=== PATIENT | female | born 1970 | race Caucasian/White ===

== ENCOUNTER 2024-01-06 19:01 | Emergency (ER) | payer OTHER ==
--- OUTSIDE RECORDS SUMMARY | 2024-01-06 19:03 | XMS REPORT | Continuity of Care Document ---
Author Name Unknown Address [address] [facility] 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 Name Role Phone [email or web address] Attending Clinician Flavia CHANG, DR MUHAMMAD Attending Clinician Unavailable [email or web address] Admitting Clinician Flavia CHANG, DR MUHAMMAD Admitting Clinician Unavailable Payers Payer Name Policy Type Policy Number Effective Date Expirati on Date Source [facility]-[employer] - S\T\S HEALTHCARE STRATEGIES - CIGNA (PPO) [id number] Problems Condition Name Condition Details Condition Category Status Onset Date Resolution Date Last Treatment Date Treating Clinician Comments Source Menopausal symptom Menopausal Symptom Problem Active 08-23 00:00: 00 [facility] Depressive disorder Depressive Disorder Problem Active 15 00:00: 00 [facility] Atrophic vaginitis Atrophic Vaginitis Problem Active 4-11 00:00: 00 [facility] Screening mammograph y Screening Mammograph y Problem Active 4-07 00:00: 00 [facility] Moderate major depression , single episode Moderate Major Depression , Single Episode Problem Active 4-03 00:00: 00 [facility] Genuine stress incontinen ce Genuine Stress Incontinen ce Problem Active 2-04 00:00: 00 [facility] Inconclusi ve mammograph y finding Inconclusi ve Mammograph y Finding Problem Active 4- 00:00: 00 [facility] Abnormal findings on diagnostic imaging of breast Abnormal Findings on Diagnostic Imaging of Breast Problem Active 4- 00:00: 00 [facility] Anxiety disorder Anxiety Disorder Problem Active 8- 00:00: 00 [facility] History of dysplasia of cervix History of Dysplasia of Cervix Problem Active 12-24 00:00: 00 [facility] Gynecologi sen examinatio n abnormal Gynecologi sen Examinatio n Abnormal Problem Active 12-24 00:00: 00 [facility] Intramural leiomyoma of uterus Intramural Leiomyoma of Uterus Problem Active 01-10 00:00: 00 [facility] Contracept ion care education Contracept ion Care Education Problem Active 12-31 00:00: 00 [facility] Pelvic and perineal pain Pelvic and Perineal Pain Problem Active 12-30 00:00: 00 [facility] Excessive and frequent menstruati on Excessive and Frequent Menstruati on Problem Active 11-26 00:00: 00 [facility] Menopause present Menopause Present Problem Active 11-26 00:00: 00 [facility] Cervical intraepith elial neoplasia grade 1 Cervical Intraepith elial Neoplasia Grade 1 Problem Active 11-26 00:00: 00 [facility] Social History Smoking Status Start Date Stop Date Source Never Smoker [facility] Medications Ordered Medication Name Filled Medication Name Start Date Stop Date Current Medication? Ordering Clinician Indication Dosage Frequency Signature (SIG) Comments Components Source escitalopra m 20 mg tablet TAKE ONE (1) TABLET(S) BY MOUTH ONCE A DAY. escitalopra m 20 mg tablet TAKE ONE (1) TABLET(S) BY MOUTH ONCE A DAY. No escitalopr am 20 mg tablet TAKE ONE (1) TABLET(S) BY MOUTH ONCE A DAY. [facility] Vital Signs Vital Name Observation Time Observation Value Comments S ource Height 2023-08-24 00:00:00 65 [in_i] [facility] BP Diastolic 2023-08-24 00:00:00 66 mm[Hg] [facility] BP Systolic 2023-08-24 00:00:00 99 mm[Hg] [facility] BMI (Body Mass Index) 2023-08-24 00:00:00 22.1 kg/m2 [facility] Body Weight 2023-08-24 00:00:00 133 [lb_av] [facility] Procedures Procedure Date / Time Performed Performing Clinicia n Source Hammer Toe Operation 2017-10-09 00:00:00 [facility] Hysteroscopy 2015-12-10 00:00:00 A[facility] Colposcopy 2015-05-11 00:00:00 Alyssa Archer [facility] Endometrial Biopsy 2015-05-11 00:00:00 [facility] Plan of Care Planned Activity Planned Date Details Comments Source Diagnostic Test Pending 2023-08-24 00:00:00 pap, LB + HPV [code = pap, LB + HPV] [facility] Future Appointment 2024-08-24 10:30:00 Melonie naylor, [address], [place] [phone] [facility] Encounters Start Date/Time End Date/Time Encounter Type Admission Type Attending Clinicians Care Facility Care Department Encounter ID Source 2023-08-24 00:00:00 2023-08-24 00:00:00 Melonie Chavez, GIS PHYSICAL SCIENTIST: [address], [place] [address] , Ph. [email or web address] diyala_S [facility] - [email or web address]* [id number] [facility] 2023-03-07 00:00:00 2023-03-07 00:00:00 Outpatient [email or web address] diyala_S [facility] [id number] [facility] 2017-10-09 04:39:00 2017-10-09 06:50:00 Outpatient JB OWEN [facility] [id number] [facility] Results Test Description Test Time Test Comments Results Result Co mments Source
[2024-01-06] MEDS ORDERED: TRANEXAMIC ACID 1,000 MG/10 ML VIAL IV ONE (20:55)
--- NOTE | 2024-01-06 22:26 | EDPHYS ---
Physician Documentation [facility] Name: Cindi Dudley Age: 53 yrs Sex: Female : 1970 Arrival Date: 01/06/2024 Time: 19:01 Bed 18 Private MD: ED Physician Dann Tomlin HPI: 01/05 20:45 This 53 yrs old Female presents to ER via Ambulatory with complaints of Laceration - sb4 ring finger. 20:46 Patient states that she was cutting a cucumber and accidentally sliced a piece of her sb4 left ring finger off. She states that she could not get the bleeding to stop so she came to the ED for further management. She is not on any blood thinners. She is unsure when her last tetanus shot was. 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 - Infectious Disease History:: Denies. - Social history:: Smoking status: Patient denies any tobacco usage or history of. ROS: 20:46 Constitutional: Negative for fever, chills, and weight loss, sb4 20:46 Skin: Positive for laceration(s), of the palmar aspect of distal phalanx of right ring finger, 20:46 All other systems are negative, Exam: 20:46 Constitutional: This is a well developed, well nourished patient who is awake, alert, sb4 and in no acute distress. Head/Face: Normocephalic, atraumatic. Eyes: Extra-ocular motions intact. Periorbital areas with no swelling, redness, or edema. ENT: Mucous membranes moist. 20:46 Skin: injury, laceration(s), the wound is approximately 3 cm(s), with a depth of 1 cm(s), of the palmar aspect of distal phalanx of right ring finger, that can be described as no foreign body, irregular, with moderate bleeding, Vital Signs: 19:21 BP 118 / 87; Pulse 76; Resp 16; Temp 97.5; Pulse Ox 98% on R/A; Weight 61.23 kg; Height cm10 5 ft. 6 in. ; Pain 0/10; 23:35 BP 114 / 84; Pulse 78; Resp 16; Temp 97.5; Pulse Ox 99% ; cp4 19:21 Body Mass Index 21.79 (61.23 kg, 167.64 cm) cm10 19:21 Pain Scale: Adult cm10 MDM: 19:05 Patient medically screened. sb4 22:36 Data reviewed: vital signs, nurses notes, and as a result, I will discharge patient. sb4 Counseling: I had a detailed discussion with the patient and/or guardian regarding the historical points, exam findings, and any diagnostic results supporting the discharge/admit diagnosis, to return to the emergency department if symptoms worsen or persist or if there are any questions or concerns that arise at home. ED course: gauze soaked in TXA and applied to wound, successfully slowed bleeding to an ooze. 01/05 22:25 Order name: Wound dressing; Complete Time: 23:07 sb4 Administered Medications: 21:01 Drug: tranexamic acid 1 application Topical once Route: Topical; Site: affected area; cp4 23:17 Drug: Boostrix Tdap IM 0.5 ml IM once; as a single dose Route: IM; Site: right deltoid; cp4 23:44 Follow up: Response: No adverse reaction cp4 Disposition: 01/06 16:23 Co-signature as Attending Physician, Dann Tomlin MD I reviewed the patient's care rn provided by the Advanced Practice Provider and agree with the diagnosis and treatment plan. Disposition Summary: 01/06/24 22:25 Discharge Ordered Notes: Location: Home sb4 Problem: new sb4 Symptoms: have improved sb4 Condition: Stable sb4 Diagnosis - Laceration without foreign body of right ring finger without damage to nail sb4 Followup: sb4 - With: Emergency Department - When: As needed - Reason: Worsening of condition Discharge Instructions: - Discharge Summary Sheet sb4 - Nonsutured Laceration Care sb4 - Uncontrolled Wound Bleeding sb4 Forms: - Patient Portal Instructions sb4 - Leadership Thank You Letter sb4 Signatures: Dann Tomlin MD MD rn Brown, Sophia, PA-C PA-C sb4 Lesley Blair RN RN cm10 Cara Lee cp4
--- NOTE | 2024-01-06 22:26 | ER ---
Nurse's Notes [facility] Name: Cindi Dudley Age: 53 yrs Sex: Female : 1970 Arrival Date: 01/06/2024 Time: 19:01 Bed 18 Private MD: Diagnosis: Laceration without foreign body of right ring finger without damage to nail Presentation: 01/05 19:21 Chief complaint: Patient states: Laceration to 4th digit on right hand. laceration cm10 noted to be bleeding in triage. Pt states that she cut her finger with a slicer. Unknown when last tetanus shot was. Coronavirus screen: Client denies travel out of the [place] in the last 14 days. Ebola Screen: Patient denies travel to an Ebola-affected area in the 21 days before illness onset. No symptoms or risks identified at this time. Complicating Factors: There are no complicating factors for this patient. Initial Sepsis Screen: Does the patient meet any 2 criteria? No. Patient's initial sepsis screen is negative. Does the patient have a suspected source of infection? No. Patient's initial sepsis screen is negative. Risk Assessment: Do you want to hurt yourself or someone else? Patient reports no desire to harm self or others. Onset of symptoms was January 06, 2024. 19:21 Method Of Arrival: Ambulatory cm10 19:21 Acuity: LIZZETH 4 cm10 Triage Assessment: 19:23 General: Appears in no apparent distress. comfortable, Behavior is calm, cooperative. cm10 Neuro: No deficits noted. Level of Consciousness is awake, alert, obeys commands, Oriented to person, place, time, situation, Appropriate for age. Respiratory: No deficits noted. Airway is patent Respiratory effort is even, unlabored, Respiratory pattern is regular, symmetrical. Injury Description: Laceration sustained to palmar aspect of distal phalanx of right ring finger is clean. 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 - Infectious Disease History:: Denies. - Social history:: Smoking status: Patient denies any tobacco usage or history of. Screenin:15 [facility] ED Fall Risk Assessment (Adult) History of falling in the last 3 months, cp4 including since admission No falls in past 3 months (0 pts) Confusion or Disorientation No (0 pts) Intoxicated or Sedated No (0 pts) Impaired Gait No (0 pts) Mobility Assist Device Used No (0 pt) Altered Elimination No (0 pt) Score/Fall Risk Level 0 - 2 = Low Risk Oriented to surroundings, Maintained a safe environment, Educated pt \T\ family on fall prevention, incl call for assistance when getting out of bed, Provided non-skid footwear. Abuse screen: Denies threats or abuse. Nutritional screening: No deficits noted. Tuberculosis screening: No symptoms or risk factors identified. Assessment: 20:15 General: Appears in no apparent distress. comfortable. cp4 20:15 Pain: Denies pain. Neuro: Level of Consciousness is awake, alert, obeys commands, cp4 Oriented to person, place, time, situation. Cardiovascular: No deficits noted. Respiratory: Airway is patent Respiratory effort is even, unlabored. GI: No signs and/or symptoms were reported involving the gastrointestinal system. : No signs and/or symptoms were reported regarding the genitourinary system. EENT: No signs and/or symptoms were reported regarding the EENT system. Derm: No signs and/or symptoms reported regarding the dermatologic system. Musculoskeletal: No signs and/or symptoms reported regarding the musculoskeletal system. Injury Description: Laceration sustained to right hand and palmar aspect of distal phalanx of right ring finger is clean, 0.5 to 2.5 cm long, bleeding moderately. 23:20 Reassessment: Disposition pending. Patient on shot time. cp4 Vital Signs: 19:21 BP 118 / 87; Pulse 76; Resp 16; Temp 97.5; Pulse Ox 98% on R/A; Weight 61.23 kg; Height cm10 5 ft. 6 in. ; Pain 0/10; 23:35 BP 114 / 84; Pulse 78; Resp 16; Temp 97.5; Pulse Ox 99% ; cp4 19:21 Body Mass Index 21.79 (61.23 kg, 167.64 cm) cm10 19:21 Pain Scale: Adult cm10 ED Course: 19:02 Patient arrived in ED. ra3 19:03 Adele Heart PA-C is PHCP. sb4 19:03 Dann Tomlin MD is Attending Physician. sb4 19:23 Triage completed. cm10 19:24 Arm band placed on Patient placed in waiting room. Pressure dressing applied. cm10 20:05 Cara Lee is Primary Nurse. cp4 20:15 Bed in low position. Call light in reach. Side rails up X 1. Provided Education on: cp4 laceration. 20:15 No provider procedures requiring assistance completed. Patient did not have IV access cp4 during this emergency room visit. Administered Medications: 21:01 Drug: tranexamic acid 1 application Topical once Route: Topical; Site: affected area; cp4 23:17 Drug: Boostrix Tdap IM 0.5 ml IM once; as a single dose Route: IM; Site: right deltoid; cp4 23:44 Follow up: Response: No adverse reaction cp4 Medication: 20:15 VIS not applicable for this client. cp4 Outcome: 22:25 Discharge ordered by MD. sb4 23:35 Discharged to home ambulatory, cp4 23:35 Condition: stable 23:35 Discharge instructions given to patient, Instructed on discharge instructions, follow up and referral plans. Demonstrated understanding of instructions, follow-up care, 23:43 Patient left the ED. cp4 Signatures: Adele Heart PA-C PA-C sb4 Lesley Blair, RN RN 10 Cara Lee cp4 Lindy Garcia ra3
[2024-01-06] MEDS ORDERED: TDAP (DIPHTH,PERTUSS(ACELL),TET VAC) 0.5 ML VIAL IMVAC ONE (23:11)
[2024-01-06 23:47] VITALS: TEMP 97.5
[2024-01-06 23:48] VITALS: BP 114/84; O2SAT 99
== END 2024-01-06 23:43 | disposition home or self-care (01) ==
LOC: ER 19:01
DX: S61.214A Laceration without foreign body of right ring finger without damage to nail, initial encounter (principal)